=== PATIENT | male | born 1950 | race Hispanic/Latino ===

== ENCOUNTER → 2017-09-22 | Outpatient (CLI) | payer MEDICARE | END | disposition home or self-care (01) | LOC: RAH 10:22 | PROVIDERS: ATTEND Physical Medicine & Rehabilitation | DX: M51.16 Intervertebral disc disorders with radiculopathy, lumbar region (principal); M43.17 Spondylolisthesis, lumbosacral region | CPT/HCPCS: 72110 ==

== ENCOUNTER → 2022-07-16 | Outpatient (CLI) | payer MEDICARE, BC ==
[~2022-07-16] MED LIST: REGADENOSON 0.4 MG/5 ML PF SYG IVP SCH
== END | disposition home or self-care (01) ==
LOC: RAH 10:31
PROVIDERS: ATTEND Internal Medicine Cardiovascular Disease
DX: I20.9 Angina pectoris, unspecified (principal)
CPT/HCPCS: 78452; 96374; 93017; J2785; A9500 ×2

== ENCOUNTER 2022-10-24 15:57 | Emergency (ER) | payer MEDICARE, BC ==
[~2022-10-24] VITALS: Ht 180.3 cm; Wt 128.4 kg
[2022-10-24 15:59] VITALS: BP 142/78
[2022-10-24 16:39] LABS: APPEARANCE,URINE SL CLOUDY (CLEAR); BILIRUBIN,URINE NEGATIVE (NEGATIVE); COLOR,URINE ORANGE (YELLOW); GLUCOSE, URINE (UA) >=1000 mg/dL (NEGATIVE); KETONES,URINE 5 mg/dL (NEGATIVE); LEUKOCYTE ESTERASE ,URINE NEGATIVE Leu/uL (NEGATIVE); NITRATE,URINE POSITIVE (NEGATIVE); OCCULT BLOOD,URINE NEGATIVE (NEGATIVE); PROTEIN,URINE 30 mg/dL (NEGATIVE); UROBILINOGEN,URINE >=8.0 mg/dL (0.2-1.0)
[2022-10-24 16:46] LABS: BACTERIA,URINE Few /HPF (None Seen); MUCUS,URINE Rare LPF (None Seen); RBC,URINE 0-1 /HPF (0-1); SQUAMOUS EPITHELIAL CELL,UR 0-2 /HPF (0-2)
[2022-10-24 16:51] LABS: BASOPHILS % (AUTO) 0.2 % (0.0-5.0); EOSINOPHILS % (AUTO) 0.1 % (0.0-8.0); HEMATOCRIT 43.1 % (42-54); LYMPHOCYTES % (AUTO) 6.5 % (21.0-51.0); MEAN CORPUSCULAR HEMOGLOBIN 29.8 pg (27.0-33.0); MEAN CORPUSCULAR HGB CONC 32.9 g/dL (32.0-36.0); MEAN CORPUSCULAR VOLUME 90.4 fL (79-99); MONOCYTES % (AUTO) 6.6 % (3.0-13.0); NEUTROPHILS % (AUTO) 86.2 % (40.0-77.0); PLATELET COUNT (AUTO) 203 K/uL (130-400); RED BLOOD CELL COUNT(AUTO) 4.77 MIL/uL (4.50-6.20); WHITE BLOOD COUNT (AUTO) 17.3 K/uL (4.8-10.8)
[2022-10-24] MEDS ORDERED: 0.9%NACL 1000ML 1,000 ML IV ONE (17:00)
[2022-10-24] MEDS ORDERED: CEFTRIAXONE 1G VIAL IVP ONE (17:00)
[2022-10-24 17:02] LABS: CREATININE 1.1 mg/dL (0.5-1.5); POTASSIUM 3.8 mmol/L (3.5-5.1)
[2022-10-24 17:07] LABS: ALBUMIN 3.2 g/dL (3.5-5.0); TOTAL PROTEIN, SERUM 6.2 g/dL (6.0-8.3)
[2022-10-24] MEDS ORDERED: SULF1TAB42 PO (18:58)
== END 2022-10-24 19:12 | disposition home or self-care (01) ==
LOC: EDH 15:57
DX: N39.0 Urinary tract infection, site not specified (principal); I10 Essential (primary) hypertension; E11.9 Type 2 diabetes mellitus without complications; Z98.890 Other specified postprocedural states; E86.0 Dehydration
CPT/HCPCS: 80053; 85025; 87088; 81001; 36415; 96374; 99283; 96361; J7030; J0696

== ENCOUNTER 2023-05-27 16:25 | Emergency (ER) | payer MEDICARE ==
[~2023-05-27] VITALS: Ht 180.3 cm; Wt 123.8 kg
[~2023-05-27 16:25] MED LIST changes: +APIX5TAB PO; +ATOR20TA65 PO; +DOXA4TAB3 PO; +EMPA10TA PO; +FLUC50TA29 PO; +GABA600T10 PO; +HYDR-4068 PO; +ISOS20TA85 PO; +LANS30CA55 PO; +LORA10TA7 PO; +LOSA100T59 PO; +METF-910 PO; +METO-409 PO; +NIFE-79 PO; +PLEC3TAB2 PO; -REGADENOSON 0.4 MG/5 ML PF SYG IVP SCH
[2023-05-27 18:13] LABS: APPEARANCE,URINE CLEAR (CLEAR); BILIRUBIN,URINE NEGATIVE (NEGATIVE); COLOR,URINE COLORLESS (YELLOW); GLUCOSE, URINE (UA) >=1000 mg/dL (NEGATIVE); KETONES,URINE NEGATIVE (NEGATIVE); LEUKOCYTE ESTERASE ,URINE NEGATIVE Leu/uL (NEGATIVE); NITRATE,URINE NEGATIVE (NEGATIVE); OCCULT BLOOD,URINE NEGATIVE (NEGATIVE); PH,URINE 7.5 (5.0-8.0); PROTEIN,URINE NEGATIVE (NEGATIVE); UROBILINOGEN,URINE 0.2 mg/dL (0.2-1.0)
[2023-05-27 18:14] LABS: ADD UA MICROSCOPIC YES
[2023-05-27 18:20] VITALS: BP 157/82; PULSE 84; RESP 18; O2SAT 97
[2023-05-27 18:22] LABS: MUCUS,URINE RARE LPF (None Seen)
== END 2023-05-27 18:49 | disposition home or self-care (01) ==
LOC: EDH 16:25
DX: R35.0 Frequency of micturition (principal); I10 Essential (primary) hypertension; E11.9 Type 2 diabetes mellitus without complications; E78.00 Pure hypercholesterolemia, unspecified; K21.9 Gastro-esophageal reflux disease without esophagitis; Z79.84 Long term (current) use of oral hypoglycemic drugs; Z79.899 Other long term (current) drug therapy; Z87.440 Personal history of urinary (tract) infections; Z98.890 Other specified postprocedural states
CPT/HCPCS: 81001; 82948; 87088

== ENCOUNTER 2023-11-25 18:00 | Emergency (ER) | payer MEDICARE ==
[~2023-11-25] VITALS: Ht 180.3 cm; Wt 124.7 kg
[2023-11-25] MEDS ORDERED: MELO10CA3 PO (20:20)
[2023-11-25 20:33] VITALS: BP 140/73; PULSE 81; RESP 16; O2SAT 97
== END 2023-11-25 20:49 | disposition home or self-care (01) ==
LOC: EDH 18:00
DX: S80.02XA Contusion of left knee, initial encounter (principal); E11.9 Type 2 diabetes mellitus without complications; E78.00 Pure hypercholesterolemia, unspecified; K21.9 Gastro-esophageal reflux disease without esophagitis; Z79.84 Long term (current) use of oral hypoglycemic drugs; Z79.899 Other long term (current) drug therapy; Z79.01 Long term (current) use of anticoagulants; W18.39XA Other fall on same level, initial encounter; Y93.89 Activity, other specified; Y92.89 Other specified places as the place of occurrence of the external cause; Y99.8 Other external cause status
CPT/HCPCS: 70450; 71045; 72170; 73562

== ENCOUNTER → 2024-09-24 | Outpatient (CLI) | payer MEDICARE ==
[~2024-09-24] MED LIST changes: +GABA-1405 PO; -GABA600T10 PO; +IOHEXOL 350 MG/ML 100ML INFUS..BTL IV ONE; +IOHEXOL-350 50ML VIAL IV ONE; +ISOS-58 PO; -ISOS20TA85 PO; +MELO10CA3 PO
--- NOTE | 2024-09-24 10:40 | HMCIMG ---
CT CARDIAC ANGIO W/CONT. CCTA REASON: Shortness of breath COMPARISON: None TECHNIQUE: Images are obtained through the heart in the axial plane before and during bolus IV contrast infusion, 100 cc Omnipaque 350. 2-D and 3-D multiplanar reconstruction images were then performed. The injection had to be repeated once due to motion artifact on the first sequence, total contrast volume was 200 cc. FINDINGS: This dictation is for the noncardiac findings only. Cardiac and coronary artery findings are reported separately. Visualized portions of the lungs are clear. There is normal-appearing pulmonary interstitium. There is no hilar or mediastinal lymphadenopathy. Chest wall structures appear unremarkable. IMPRESSION: 1. Unremarkable noncardiac portions of CT cardiac angiography.
--- NOTE | 2024-09-30 12:46 | CARDIOLOGY ---
RAD REPORT: [facility] CT ANGIO RADIOLOGY REPORT: CORONARY CT ANGIOGRAPHY DATE: Sep 30, 2024 QUALITY: Excellent CLINICAL HISTORY AND INDICATION: [ chest pain] TECHNIQUE: After obtaining a preliminary synthetic soil blocks pulper image, contrast imaging performed on an [employer] [id number] scanner. A dedicated, limited window, coronary imaging protocol was used, with single breath-hold, retrospective ECG gating, and automated arrhythmia rejection. 100 cc of low osmolar contrast agent: Omnipaque 350 was delivered via a 18-gauge IV catheter in the right antecubital fossa, using a power injector and followed by 60 cc of normal saline bolus as a chaser. Collimated images were reformatted at 0.5 mm intervals, and sent to an offline independent workstation for interpretation, using 3D anatomic reconstructions: Curved multiplanar reconstructions, maximum intensity projections, and multiplanar imaging. No metoprolol was administered prior to scanning due to low baseline heart rate. 0.8 mg SL nitroglycerin was given. CORONARY ARTERY DESCRIPTIONS: The coronary arteries arise in normal position. Left main coronary artery: Normal caliber vessel that bifurcates into the LAD and LCx. No stenosis. Left anterior descending coronary artery: Normal caliber vessel and gives rise to diagonal and septal branches. There is mixed calcified and noncalcified plaque in the proximal LAD with 30-40% stenosis. Left circumflex coronary artery: Normal caliber, nondominant and gives rise to a large OM branch. Due to abrupt rise in heart rate during scanning, the LCx and its branches are not well visualized, recommend choosing different testing modality. Right coronary artery: Large, dominant vessel giving rise to the PL and PDA branches. Due to abrupt rise in heart rate during scanning, the RCA and its branches are not well visualized, recommend choosing different testing modality. Thoracic Aorta: Normal diameter. Tina Zambrano MD Cardiovascular Disease [facility] TINA ZAMBRANO MD Sep 30, 2024 12:46
== END | disposition home or self-care (01) ==
LOC: RAH 08:32
PROVIDERS: ATTEND Internal Medicine Cardiovascular Disease
DX: I25.10 Atherosclerotic heart disease of native coronary artery without angina pectoris (principal); R06.02 Shortness of breath
CPT/HCPCS: 75574; Q9967 ×2